=== PATIENT | male | born 1965 | race Caucasian/White ===

== ENCOUNTER 2019-01-05 18:15 | Emergency (ER) | payer OTHER ==
[~2019-01-05] VITALS: Ht 167.6 cm; Wt 70.9 kg
[2019-01-05 18:25] VITALS: Ht 167.6 cm; Wt 70.9 kg
[2019-01-05 20:30] VITALS: BP 150/85; PULSE 105; RESP 18
--- NOTE | 2019-01-05 21:25 | ERD ---
ER Documentation Chief Complaint Chief Complaint BIB RESCUE. HYPOGLYCEMIC X 1 DAY. TOOK INSULIN BUT NO FOOD. HPI Patient is a 53-year-old male with diabetes who presents with hypoglycemia. Patient was brought in by ambulance. His sugar dropped to 30 and he was given D10 by paramedics. The sugar is now 194. He was confused at the time his blood sugar was low. He said that he took insulin today but did not eat. Upon review of old medical records this is the patient's first visit to the emergency department. The patient does have a primary doctor at [facility]. ROS All systems reviewed and are negative except as per history of present illness. Allergies Allergies: Coded Allergies: No Known Allergy (Unverified , 01/05/19) PMhx/Soc Positive for diabetes History of Surgery: No Anesthesia Reaction: No Hx Neurological Disorder: No Hx Respiratory Disorders: No Hx Psychiatric Problems: No Hx Miscellaneous Medical Probl: No Hx Alcohol Use: No Hx Substance Use: No Hx Tobacco Use: No Smoking Status: Never smoker FmHx Family History: No diabetes Physical Exam Vitals Vital Signs Date Temp Pulse Resp B/P (MAP) Pulse Ox O2 O2 Flow FiO2 Time Delivery Rate 01/05/19 105 18 150/85 100 Room Air 20:30 (106) 01/05/19 98.7 118 18 151/89 100 18:25 (109) Physical Exam Const: No acute distress Head: Atraumatic Eyes: Normal Conjunctiva ENT: Normal External Ears, Nose and Mouth. Neck: Full range of motion. No meningismus. Resp: Clear to auscultation bilaterally Cardio: Regular rate and rhythm, no murmurs Abd: Soft, non tender, non distended. Normal bowel sounds Skin: No petechiae or rashes Back: No midline or flank tenderness Ext: No cyanosis, or edema Neur: Awake and alert Psych: Normal Mood and Affect Result Diagram: 01/05/19190201/05/191901 Results 24 hrs Laboratory Tests Test 01/05/19 19:02 01/05/19 19:03 Sodium Level 144 mmol/L Potassium Level 4.2 mmol/L Chloride Level 104 mmol/L Carbon Dioxide Level 29 mmol/L Anion Gap 11 Blood Urea Nitrogen 13 mg/dl Creatinine 0.76 mg/dl Est Glomerular Filtrat Rate mL/min > 60 mL/min Glucose Level 76 mg/dl Calcium Level 9.2 mg/dl White Blood Count 13.5 10^3/ul Red Blood Count 4.45 10^6/ul Hemoglobin 12.7 g/dl Hematocrit 39.7 % Mean Corpuscular Volume 89.2 fl Mean Corpuscular Hemoglobin 28.5 pg Mean Corpuscular Hemoglobin Concent 32.0 g/dl Red Cell Distribution Width 13.6 % Platelet Count 374 10^3/UL Mean Platelet Volume 8.9 fl Immature Granulocytes % 0.500 % Neutrophils % 88.4 % Lymphocytes % 6.7 % Monocytes % 4.0 % Eosinophils % 0.1 % Basophils % 0.3 % Nucleated Red Blood Cells % 0.0 /100WBC Immature Granulocytes # 0.070 10^3/ul Neutrophils # 12.0 10^3/ul Lymphocytes # 0.9 10^3/ul Monocytes # 0.5 10^3/ul Eosinophils # 0.0 10^3/ul Basophils # 0.0 10^3/ul Nucleated Red Blood Cells # 0.0 10^3/ul Procedures/MDM Patient is a 53-year-old male presents with hypoglycemia. The patient was treated by paramedics with D50 and the sugar has improved. Patient was given a turkey sandwich here in the emergency department and laboratory studies were basically normal. The patient was instructed not to take insulin and not eat in the future. He was instructed to eat food after taking insulin. The patient went to follow-up closely with the primary doctor within 24 to 48 hours for evaluation. The patient can return for any worsening symptoms. Departure Diagnosis: Primary Impression: Hypoglycemia Condition: Fair Patient Instructions: Hypoglycemia (Low Blood Sugar) Referrals: Your doctor Additional Instructions: Call your primary care doctor TOMORROW for an appointment during the next 1-2 days.See the doctor sooner or return here if your condition worsens before your appointment time. CLEMENTINA PANDEY MD Jan 05, 2019 21:25
== END 2019-01-05 20:39 | disposition home or self-care (01) ==
LOC: E/R 18:15
DX: E11.649 Type 2 diabetes mellitus with hypoglycemia without coma (principal)
CPT/HCPCS: 36415; 80048; 82962; 85025; 99283